=== PATIENT | female | born 1990 | race Caucasian/White ===

== ENCOUNTER 2019-04-11 15:51 | Observation (INO) | payer OTHER ==
[2019-04-11 16:41] LABS: Basophils # (A) 0.2 k/uL (0-0.2); Basophils % (A) 1 %; Eosinophils # (A) 0.2 k/uL (0-0.7); Eosinophils % (A) 1 %; HCT 35.3 % (34.0-46.0); HGB 12.2 gm/dL (11.4-16.0); Lymphocytes # (A) 2.3 k/uL (1.0-4.8); Lymphocytes % (A) 17 %; MCH 31.7 pg (25.0-35.0); MCHC 34.6 g/dL (31.0-37.0); MCV 91.6 fL (80.0-100.0); Mean Platelet Volume 7.9; Monocytes # (A) 0.7 k/uL (0-1.0); Monocytes % (A) 5 %; Neutrophils # (A) 10.2 k/uL (1.3-7.7); Neutrophils % (A) 74 %; Platelet Count 241 k/uL (150-450); RBC 3.85 m/uL (3.80-5.40); RDW 13.9 % (11.5-15.5); WBC 13.7 k/uL (3.8-10.6)
[2019-04-11 16:47] LABS: Appearance,Urine Cloudy (Clear); Bacteria,Urine Many /hpf; Bilirubin,Urine Negative (Negative); Blood,Urine Negative (Negative); Color,Urine Yellow; Glucose,Urine (UA) Negative (Negative); Ketones,Urine Negative (Negative); Leukocyte Esterase,Urine Large (Negative); Mucus,Urine Rare /hpf; Nitrite,Urine Negative (Negative); PH, Urine 6.5 (5.0-8.0); Protein,Urine Trace (Negative); RBC,Urine 3 /hpf (0-5); Specific Gravity,Urine 1.014 (1.001-1.035); Squamous Epithelial Cell,Urine 4 /hpf (0-4); Urobilinogen,Urine <2.0 mg/dL (<2.0); WBC,Urine 20 /hpf (0-5)
[2019-04-11 16:52] LABS: Amphetamine Screen,Urine Not Detected (NotDetected); Barbiturate Screen,Urine Not Detected (NotDetected); Benzodiazepines Screen,Urine Not Detected (NotDetected); Cocaine Screen,Urine Not Detected (NotDetected); Methadone Screen, Urine Not Detected (NotDetected); Opiate Screen,Urine Not Detected (NotDetected); Oxycodone Screen, Urine Not Detected (NotDetected); Phencyclidine Screen,Urine Not Detected (NotDetected); Tricyclic Antidepressant,Urine Not Detected (NotDetected); Urn Cannabinoid Scrn Detected (NotDetected)
[2019-04-11 16:53] LABS: ALT 11 U/L (4-34); AST 18 U/L (14-36); African American GFR (CKD) >90 (>60 ml/min/1.73 sqM); Blood Urea Nitrogen 10 mg/dL (7-17); LDH 350 U/L (313-618); Non-African American GFR(CKD) >90 (>60 ml/min/1.73 sqM); Uric Acid 4.1 mg/dL (3.7-7.4)
--- NOTE | 2019-04-11 19:58 | P.HPOB ---
History of Present Illness H&P Date: 04/11/19 Chief Complaint: Hypertension This patient is a 28-year-old 1 para 0 female estimated date of confinement 05/09/2019 estimated gestational age 36 weeks who presented to the office today for routine office visit with Tami. Patient's blood pressure is elevated 132/90 and therefore she was sent to labor and delivery for preeclampsia evaluation. care is per Dr. Holloway and appears to be otherwise uncomplicated up to this point. Patient's blood pressure in labor and delivery also was mildly elevated to 130s over 90s however she did have one that was 162/97. Patient denies headache, blurry vision or other signs and symptoms of preeclampsia. Review of Systems Genitourinary: Reports Menstruation: Reports amenorrhea Past Medical History Additional Past Medical History / Comment(s): anxiety, ADHD History of Any Multi-Drug Resistant Organisms: None Reported Past Surgical History: Adenoidectomy, Orthopedic Surgery Smoking Status: Former smoker Past Alcohol Use History: None Reported Past Drug Use History: Marijuana Medications and Allergies Home Medications Medication Instructions Recorded Confirmed Type Pnv No.95/Ferrous Fum/Folic AC 1 each PO DAILY 04/11/19 04/11/19 History [ Multivitamin Tablet] Allergies Allergy/AdvReac Type Severity Reaction Status Date / Time sulfamethoxazole Allergy Unknown Verified 04/11/19 16:06 [From Bactrim] trimethoprim [From Bactrim] Allergy Unknown Verified 04/11/19 16:06 Exam Intake and Output 04/11/19 04/11/19 04/11/19 06:59 14:59 22:59 Other: Weight 105.687 kg - OBG Physical Exam Abdomen: bowel sounds normal, no diffuse tenderness, no bruit present, no guard ing noted, no hepatomegaly, no splenomegaly, no mass Vulva: both: normal Vagina: no discharge Uterus: enlarged (Fundal height and office is 38 cm) Results blood work shows she is O-, rubella immune, RPR nonreactive, hepatitis B negative, HIV is nonreactive, toxoplasmosis was negative, anatomy ultrasound was normal. Group B strep was negative. Result Diagrams: 04/11/19 16:25 04/11/19 16:25 Abnormal Lab Results - Last 24 Hours (Table) 04/11/19 04/11/19 04/11/19 Range/Units 16:25 16:25 16:25 WBC 13.7 H (3.8-10.6) k/uL Neutrophils # 10.2 H (1.3-7.7) k/uL Urine Appearance Cloudy H (Clear) Urine Protein Trace H (Negative) Ur Leukocyte Esterase Large H (Negative) Urine WBC 20 H (0-5) /hpf Urine Bacteria Many H (None) /hpf Urine Mucus Rare H (None) /hpf U Random Total Protein 13 H (<12) mg/dL U Marijuana (THC) Screen (NotDetected) 04/11/19 Range/Units 16:25 WBC (3.8-10.6) k/uL Neutrophils # (1.3-7.7) k/uL Urine Appearance (Clear) Urine Protein (Negative) Ur Leukocyte Esterase (Negative) Urine WBC (0-5) /hpf Urine Bacteria (None) /hpf Urine Mucus (None) /hpf U Random Total Protein (<12) mg/dL U Marijuana (THC) Screen Detected H (NotDetected) Assessment and Plan Assessment: This is a 28-year-old 1 para 0 female 36-0/7 weeks gestation admitted for evaluation of hypertension. Patient's had some persistent hypertension here in labor and delivery however nothing that requires treatment. Patient's labs were normal however she had trace proteinuria and therefore I feel it is best to admit her for 24-hour urine and close observation of blood pressures over that time. If she were to develop severe criteria and will proceed with delivery. Otherwise patient will be stable for discharge home to follow-up with nonstress test and repeat blood pressures. Also patient was noted to have the odor of marijuana and therefore a urine screen was done which was positive. I did discuss this with her and she states that she does use it on a regular basis for pain. I explained to her that at this point we do not know the long-term effects of marijuana on development. I encouraged her to discontinue. (1) 36 weeks gestation of Current Visit: Yes Status: Acute Code(s): Z3A.36 - 36 WEEKS GESTATION OF SNOMED Code(s): 78007511 (2) Gestational hypertension Current Visit: Yes Status: Acute Code(s): O13.9 - GESTATIONAL HTN W/O SIGNIFICANT PROTEINURIA, UNSP TRIMESTER SNOMED Code(s): 703321180 (3) Substance abuse Current Visit: Yes Status: Acute Code(s): F19.10 - OTHER PSYCHOACTIVE SUBSTANCE ABUSE, UNCOMPLICATED SNOMED Code(s): 84656505
[2019-04-11 21:02] VITALS: RESP 16
--- NOTE | 2019-04-12 06:10 | P.PN ---
Progress Note - Text Progress Note Date: 04/12/19 Patient is resting without new complaints. Blood pressures earlier in the evening were 140s over 90s however they've improved 120s over 80s throughout the night. Patient continues to deny symptoms. Patient denies headache or visual changes. 24-hour urine is in progress. Plan today is to continue inpatient blood pressure observation. We will complete her 24-hour urine. Dr. Garnica will be continuing care for this patient throughout the day and I have discussed possible discharge if blood pressures remain normal and normal 24-hour urine. Obviously if there is a change in her status or worsening blood pressures it meets severe criteria she will require delivery.
[2019-04-12 16:43] LABS: Total Volume 24 Hour,Urine 1325 mls (800-1800)
[2019-04-12 16:59] LABS: Total Protein 24 Hour,Urine 172 mg/24hr (42.0-225.0)
--- NOTE | 2019-04-12 17:20 | P.DS ---
Providers Date of admission: 04/11/19 17:23 Expected date of discharge: 04/12/19 Attending physician: Ashwini Holloway Primary care physician: Stated None Hospital Course: Trina is seen and evaluated. Her 24 urine is back and is in 172. She does not have preeclampsia (all preeclamptic labs were normal). She is diagnosed with gestational hypertension. Blood pressures are all essentially in the 130/90 range while she is resting. She is resting, limit this time she did have one elevation blood pressure there is significant but she just got done having an argument with her family. She is instructed to be at home on modified bedrest through the and on Monday she'll return for blood pressure check and a nonstress test. 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 I did inform her that most likely she would be delivered between 37 and 38 weeks due to her gestational hypertension. Should she have any severe headaches, epigastric pain, visual changes or other concerns she is to reporting medially back to labor and delivery. She has no other symptoms of preeclampsia, her deep tendon reflexes are normal and she has minimal swelling in lower extremities. NST reveals a category 1 tracing . I did have a long discussion with she and her partner and all questions were answered for her prior to her discharge Patient Condition at Discharge: Stable Plan - Discharge Summary New Discharge Prescriptions: No Action Pnv No.95/Ferrous Fum/Folic AC [ Multivitamin Tablet] 1 each PO DAILY Discharge Medication List Pnv No.95/Ferrous Fum/Folic AC [ Multivitamin Tablet] 1 each PO DAILY 04/11/19 [History]
[2019-04-12 17:21] VITALS: BP 132/79; PULSE 120; TEMP 98.3
== END 2019-04-12 17:35 | disposition home or self-care (01) ==
LOC: FBPOP 15:51 → 4FBP 17:23
PROVIDERS: ADMIT Obstetrics & Gynecology; ATTEND Obstetrics & Gynecology
DX: O13.3 Gestational [pregnancy-induced] hypertension without significant proteinuria, third trimester (principal); Z3A.36 36 weeks gestation of pregnancy; O99.343 Other mental disorders complicating pregnancy, third trimester; F41.9 Anxiety disorder, unspecified; F90.9 Attention-deficit hyperactivity disorder, unspecified type; O99.323 Drug use complicating pregnancy, third trimester; F12.10 Cannabis abuse, uncomplicated; Z88.2 Allergy status to sulfonamides; Z79.899 Other long term (current) drug therapy; Z87.891 Personal history of nicotine dependence; Z90.89 Acquired absence of other organs
CPT/HCPCS: 59025; 82570; 84156 ×2; 81050; 82565; 83615; 84450; 84460; 84520; 84550; 85025; 81001; 80306; G0378 ×2

== ENCOUNTER 2019-04-14 17:38 | Outpatient (CLI) | payer OTHER ==
[2019-04-14 18:41] VITALS: BP 137/80; PULSE 114; RESP 16; TEMP 97.6
== END 2019-04-14 18:43 | disposition home or self-care (01) ==
LOC: FBPOP 17:38
PROVIDERS: ATTEND Obstetrics & Gynecology
DX: O13.3 Gestational [pregnancy-induced] hypertension without significant proteinuria, third trimester (principal); Z3A.36 36 weeks gestation of pregnancy
CPT/HCPCS: 59025; G0463; 99213

== ENCOUNTER 2019-04-19 05:45 | Inpatient (IN) | payer OTHER ==
--- NOTE | 2019-04-18 19:30 | P.HPOB ---
History of Present Illness H&P Date: 04/18/19 Chief Complaint: Gestational hypertension This is a 28 y.o. female, gravda 1, para 0, with an estimated date of confinement of 05/09/2019, estimated gestational age of 37-1/7 weeks, who presents for induction of labor due to gestational hypertension. She presented to L&D on 04/11/2019 with elevated BPs. 24 hour urine was ok, but she did have several elevated BPs. Since she is now 37 weeks, we will proceed with induction of labor due to gestational hypertension. She currently denies headaches or blurred vision. labs: Hepatitis B surface antigen-neg RPR-NR Rubella-immune Blood type-O neg Antibody screen-neg Hemoglobin-13.6 Toxoplasma-neg Random glucose-83 1 hr. 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 Unemployed. Review of Systems Constitutional: Denies chills, Denies fever Eyes: denies blurred vision, denies pain Ears, nose, mouth and throat: Denies headache, Denies sore throat Cardiovascular: Denies chest pain, Denies shortness of breath Gastrointestinal: Reports abdominal pain (irreg. ctxs) Genitourinary: Reports pelvic pain, Reports Musculoskeletal: Reports low back pain Integumentary: Denies pruritus, Denies rash Neurological: Denies numbness, Denies weakness Psychiatric: Reports anxiety, Reports depression Past Medical History Additional Past Medical History / Comment(s): anxiety, ADHD History of Any Multi-Drug Resistant Organisms: None Reported Past Surgical History: Adenoidectomy, Orthopedic Surgery Additional Past Surgical History / Comment(s): Right Arm surgery Past Psychological History: ADD/ADHD, Anxiety, Depression Smoking Status: Former smoker Past Alcohol Use History: None Reported Past Drug Use History: Marijuana - Past Family History Father Family Medical History: No Reported History Mother Family Medical History: Hypertension Medications and Allergies Home Medications Medication Instructions Recorded Confirmed Type Pnv No.95/Ferrous Fum/Folic AC 1 each PO DAILY 04/11/19 04/14/19 History [ Multivitamin Tablet] Allergies Allergy/AdvReac Type Severity Reaction Status Date / Time sulfamethoxazole Allergy Unknown Verified 04/14/19 17:43 [From Bactrim] trimethoprim [From Bactrim] Allergy Unknown Verified 04/14/19 17:43 Exam Osteopathic Statement: *. No significant issues noted on an osteopathic structural exam other than those noted in the History and Physical/Consult. HEENT: within normal limits Heart: regular rate and rhythm Lungs: clear to ausculation bilaterally Abdomen: Cervix: 1.5 cm/60%/-2 heart tones: Category 1 Contractions: irreg. Extremities: neg. Homans. Assessment and Plan (1) 37 weeks gestation of Status: Acute Code(s): Z3A.37 - 37 WEEKS GESTATION OF SNOMED Code(s): 55318089 (2) Gestational hypertension Status: Acute Code(s): O13.9 - GESTATIONAL HTN W/O SIGNIFICANT PROTEINURIA, UNSP TRIMESTER SNOMED Code(s): 545991499 Plan: Proceed with oxytocin induction of labor. Epidural anesthesia if desired. Expectant management.
[2019-04-19] MEDS ORDERED: TERBUTALINE 1 MG/ML VIAL SQ PRN (06:00)
[2019-04-19] MEDS ORDERED: METHYLERGONOVINE 0.2 MG/ML 1 ML AMP IM PRN (06:00)
[2019-04-19] MEDS ORDERED: OXYTOCIN 10 UNIT/ML 1 ML VIAL IM PRN (06:00)
[2019-04-19] MEDS ORDERED: LIDOCAINE 0.5% (PF) 5 MG/ML (50 ML SDV) SQ PRN (06:00)
[2019-04-19] MEDS ORDERED: CARBOPROST TROMETHAMINE 250 MCG/ML 1 ML AMP IM PRN (06:00)
[2019-04-19] MEDS ORDERED: OXYTOCIN 30 UNITS/500 ML NS 30 UNIT in SALINE 1 500ML.BAG IV SCH (06:00)
[2019-04-19] MEDS ORDERED: LIDOCAINE 1% 20 ML VIAL (10MG/ML) FOR IV START INTRADERMA PRN (06:00)
[2019-04-19] MEDS: LACTATED RINGERS 1,000 ML IV SCH ×5 (06:11→19:38)
[2019-04-19 06:22] LABS: Basophils # (A) 0.2 k/uL (0-0.2); Basophils % (A) 1 %; Eosinophils # (A) 0.2 k/uL (0-0.7); Eosinophils % (A) 2 %; HCT 35.5 % (34.0-46.0); HGB 12.2 gm/dL (11.4-16.0); Lymphocytes # (A) 2.9 k/uL (1.0-4.8); Lymphocytes % (A) 21 %; MCH 31.6 pg (25.0-35.0); MCHC 34.3 g/dL (31.0-37.0); MCV 92.1 fL (80.0-100.0); Monocytes # (A) 0.6 k/uL (0-1.0); Monocytes % (A) 4 %; Neutrophils # (A) 9.5 k/uL (1.3-7.7); Neutrophils % (A) 69 %; Platelet Count 248 k/uL (150-450); RBC 3.86 m/uL (3.80-5.40); RDW 14.3 % (11.5-15.5); WBC 13.7 k/uL (3.8-10.6)
[2019-04-19] MEDS ORDERED: BUTORPHANOL 1 MG/ML 1 ML VIAL IV PRN (10:54)
[2019-04-19] MEDS ORDERED: SODIUM CHLORIDE 0.9% 100 ML BAG ONE (13:26)
[2019-04-19] MEDS ORDERED: fentaNYL (PF) 50 MCG/ML 5 ML AMP ONE (13:26)
[2019-04-19] MEDS ORDERED: ROPIVACAINE 5MG/ML 20ML VIAL ONE (13:26)
[2019-04-19] MEDS: PRENATAL VIT-IRON-FOLIC ACID 1 EACH CAP PO SCH (19:38)
[2019-04-19] MEDS ORDERED: HYDROCORTISONE 2.5% RECTAL CREAM 30 GM TUBE RECTAL PRN (20:01)
[2019-04-19] MEDS ORDERED: OXYTOCIN 20 UNITS/1000 ML NS 1,000 ML IV SCH (20:01)
[2019-04-19] MEDS ORDERED: diphenhydrAMINE 25 MG CAP PO PRN (20:01)
[2019-04-19] MEDS ORDERED: ZOLPIDEM 5 MG TAB PO PRN (20:01)
[2019-04-19] MEDS ORDERED: WITCH HAZEL 1 EACH MED..PAD TOPICAL PRN (20:01)
[2019-04-19] MEDS ORDERED: LANOLIN CREAM 5 GM TUBE TOPICAL PRN (20:01)
[2019-04-19] MEDS ORDERED: diphenhydrAMINE 50 MG/ML 1 ML VIAL IVP PRN ×2 (20:01)
[2019-04-19] MEDS ORDERED: BENZOCAINE/MENTHOL SPRAY 1 GM/SPRAY AEROSOL TOPICAL PRN (20:01)
[2019-04-19] MEDS ORDERED: SIMETHICONE 80 MG CHEWABLE PO PRN (20:01)
[2019-04-19] MEDS ORDERED: diphenhydrAMINE 50 MG CAP PO PRN (20:01)
[2019-04-19] MEDS ORDERED: ACETAMINOPHEN TAB 325 MG TAB PO PRN (20:01)
--- NOTE | 2019-04-19 20:03 | P.PROBDLV ---
Vaginal Delivery Note - . Vaginal Delivery Note: The patient progressed to complete dilation after oxytocin induction of labor and artificial rupture of membranes with clear fluid noted. She did have occasional elevated blood pressures but nothing severe throughout her labor. She did receive epidural anesthesia. Once reaching complete dilation, she began pushing. 's head came to a crown. With one further push, the infant's head delivered across the perineum followed by the anterior shoulder. Nose and mouth were bulb suctioned at the perineum and then a tight nuchal cord times one was doubly clamped and cut and reduced around the 's head. With one further push, the remainder the easily delivered and was placed on mother's abdomen. was taken to warmer evaluated by nursing staff. A viable male infant is noted with scores of 8 at 1 minute and 8 at 5 minutes and weight of 6 lbs. 7 oz. Placenta delivered shortly thereafter, intact, with a three-vessel cord. Uterus contracted fairly well after oxytocin was given and uterine massage was carried out. A gloved hand was placed within the endometrial cavity and a few blood clots were removed. Uterus did firm up well after this. Inspection of the perineum revealed a first-degree perineal laceration and a right periurethral laceration. These areas were anesthetized with 1% lidocaine and then sutured with 3-0 and 2-0 Vicryl suture respectively in a running locked fashion. Estimated blood loss is approximately 250 mL's. Both mother and infant are in stable condition.
[2019-04-19] MEDS: IBUPROFEN 600 MG TAB PO PRN (20:35)
[2019-04-19] MEDS: SENNOSIDES-DOCUSATE SODIUM 1 EACH TAB PO SCH (20:36)
[2019-04-20] MEDS: IBUPROFEN 600 MG TAB PO PRN ×3 (06:43→23:09)
[2019-04-20 07:42] LABS: Basophils # (A) 0.1 k/uL (0-0.2); Basophils % (A) 1 %; Eosinophils # (A) 0.1 k/uL (0-0.7); Eosinophils % (A) 1 %; HCT 33.2 % (34.0-46.0); HGB 11.1 gm/dL (11.4-16.0); Lymphocytes # (A) 2.8 k/uL (1.0-4.8); Lymphocytes % (A) 21 %; MCH 31.1 pg (25.0-35.0); MCHC 33.5 g/dL (31.0-37.0); MCV 92.8 fL (80.0-100.0); Mean Platelet Volume 8.6; Monocytes # (A) 0.8 k/uL (0-1.0); Monocytes % (A) 6 %; Neutrophils % (A) 69 %; Platelet Count 206 k/uL (150-450); RBC 3.58 m/uL (3.80-5.40); RDW 14.2 % (11.5-15.5)
[2019-04-20] MEDS: SENNOSIDES-DOCUSATE SODIUM 1 EACH TAB PO SCH ×2 (08:44→19:50)
[2019-04-20] MEDS: PRENATAL VIT-IRON-FOLIC ACID 1 EACH CAP PO SCH (08:47)
[2019-04-20] MEDS ORDERED: Rhogam IMMUNE GLOBULIN 1,500 UNIT/1 ML IM ONE (12:58)
--- NOTE | 2019-04-20 13:09 | P.PNOBGVD ---
Subjective - Subjective Principal diagnosis: Status post vaginal delivery day #1 Interval history: Patient is doing okay. She is having some difficulty with breast-feeding. Lochia is slowly decreasing. Pain is well-controlled. Patient reports: Reports appetite normal, Reports voiding normally, Reports pain well controlled, Reports ambulating normally : doing well Objective - Latest Vital Signs Latest vital signs: Vital Signs Temp Pulse Resp BP 04/20/19 08:00 98.3 F 98 14 130/92 04/20/19 04:00 98.3 F 89 16 121/64 04/20/19 00:00 98.3 F 90 16 132/87 04/19/19 21:40 99.8 F H 110 H 16 133/77 04/19/19 21:10 105 H 16 132/83 04/19/19 20:40 121 H 16 128/80 04/19/19 20:25 108 H 16 133/91 04/19/19 20:10 113 H 16 133/75 04/19/19 19:55 99.1 F 118 H 16 145/83 04/19/19 19:40 115 H 16 154/85 Intake and Output 04/19/19 04/20/19 04/20/19 22:59 06:59 14:59 Intake Total 600 Balance 600 Intake: Other 600 Other: # Voids 1 2 - Exam Extremities: Present: normal. Absent: tenderness Abdomen: Present: normal appearance, soft. Absent: distention, tenderness Uterus: Present: normal, firm. Absent: tenderness - Labs Labs: Abnormal Lab Results - Last 24 Hours (Table) 04/20/19 Range/Units 06:26 WBC 13.0 H (3.8-10.6) k/uL RBC 3.58 L (3.80-5.40) m/uL Hgb 11.1 L (11.4-16.0) gm/dL Hct 33.2 L (34.0-46.0) % Neutrophils # 9.0 H (1.3-7.7) k/uL Assessment and Plan Assessment: Status post vaginal delivery day #1 Gestational hypertension (1) 37 weeks gestation of Current Visit: No Status: Acute Code(s): Z3A.37 - 37 WEEKS GESTATION OF SNOMED Code(s): 00643511 (2) Gestational hypertension Current Visit: No Status: Acute Code(s): O13.9 - GESTATIONAL HTN W/O SIGNIFICANT PROTEINURIA, UNSP TRIMESTER SNOMED Code(s): 601509915 Plan: Continue with care and observation of blood pressures. She has had an occasional isolated elevated blood pressure since delivery. We'll work on breast-feeding today. Anticipate discharge home tomorrow. Will consult social work job titles due to her history of marijuana use during
[2019-04-20 23:41] VITALS: RESP 16
[2019-04-21] MEDS: IBUPROFEN 600 MG TAB PO PRN (08:23)
[2019-04-21] MEDS: SENNOSIDES-DOCUSATE SODIUM 1 EACH TAB PO SCH (08:24)
[2019-04-21 08:32] VITALS: BP 135/85; PULSE 91; TEMP 97.9
--- NOTE | 2019-04-21 10:41 | P.DS ---
Providers Date of admission: 04/19/19 05:45 Expected date of discharge: 04/21/19 Attending physician: Ashwini Holloway Primary care physician: Stated None - Discharge Diagnosis(es) (1) 37 weeks gestation of Current Visit: No Status: Acute (2) Gestational hypertension Current Visit: No Status: Acute Hospital Course: This is a 28-year-old female 1 para 0 at 37 and one sevenths weeks who presented for induction of labor due to gestational hypertension. She delivered vaginally a viable male infant on 04/19/2019 with scores of 8 at 1 minute and 8 at 5 minutes and infant weight of 6 lbs. 7 oz. Her course has been essentially uncomplicated. She has been working on breast-feeding. Lochia is decreasing. Pain is been fairly well-controlled. Her blood pressures have been stable since delivery. Vital signs are stable. Abdomen is soft with fundus firm and nontender. Extremities show negative Homans. Impression is status post vaginal delivery day #2. Plan is to discharge home today. Routine instructions are given. She is advised to follow up in the office in 1-2 weeks for a blood pressure check and in 6 weeks for a check. She is advised to call the office if she has any further questions or concerns prior to her appointment time. She will be given a prescription for ibuprofen and a breast pump. Procedures: Oxytocin induction of labor Spontaneous vaginal delivery of a viable male infant on 04/19/2019 Patient Condition at Discharge: Stable Plan - Discharge Summary New Discharge Prescriptions: No Action Pnv No.95/Ferrous Fum/Folic AC [ Multivitamin Tablet] 1 each PO DAILY Discharge Medication List Pnv No.95/Ferrous Fum/Folic AC [ Multivitamin Tablet] 1 each PO DAILY 04/11/19 [History]
== END 2019-04-21 12:45 | disposition home or self-care (01) | DRG 807 ==
LOC: 4FBP 05:45
PROVIDERS: ADMIT Obstetrics & Gynecology; ATTEND Obstetrics & Gynecology
PROC: 10E0XZZ Delivery of Products of Conception, External Approach (ICD-10-PCS; principal; 2019-04-19)
PROC: 10907ZC Drainage of Amniotic Fluid, Therapeutic from Products of Conception, Via Natural or Artificial Opening (ICD-10-PCS; principal; 2019-04-19)
PROC: 3E0R3BZ Introduction of Anesthetic Agent into Spinal Canal, Percutaneous Approach (ICD-10-PCS; principal; 2019-04-19)
PROC: 00HU33Z Insertion of Infusion Device into Spinal Canal, Percutaneous Approach (ICD-10-PCS; principal; 2019-04-19)
PROC: 0HQ9XZZ Repair Perineum Skin, External Approach (ICD-10-PCS; principal; 2019-04-19)
PROC: 3E033VJ Introduction of Other Hormone into Peripheral Vein, Percutaneous Approach (ICD-10-PCS; principal; 2019-04-19)
DX: O13.4 Gestational [pregnancy-induced] hypertension without significant proteinuria, complicating childbirth (principal); Z37.0 Single live birth; O99.324 Drug use complicating childbirth; O69.1XX0 Labor and delivery complicated by cord around neck, with compression, not applicable or unspecified; O70.0 First degree perineal laceration during delivery; F12.90 Cannabis use, unspecified, uncomplicated; Z3A.37 37 weeks gestation of pregnancy; Z88.1 Allergy status to other antibiotic agents; Z88.2 Allergy status to sulfonamides; Z87.891 Personal history of nicotine dependence; Z86.59 Personal history of other mental and behavioral disorders; Z82.49 Family history of ischemic heart disease and other diseases of the circulatory system
CPT/HCPCS: 85025; 85461; 86850; 86900; 86901; 88307

== ENCOUNTER → 2020-08-28 | Outpatient (CLI) | payer OTHER ==
--- NOTE | 2020-08-28 16:34 | US ---
EXAMINATION TYPE: Transabdominal DATE OF EXAM: 08/28/2020 3:06 PM COMPARISON: NONE CLINICAL HISTORY: Z36 confirm dates. Confirm dates EXAM PERFORMED: Transabdominal (TA) EXAM MEASUREMENTS: GESTATIONAL AGE / DATING Physician Established: Not yet established Dates by LMP (11 weeks/4 days) EDC: 03/15/2021 Dates by First Scan: No previous this is first scan Dates by Current Scan for ( 9 weeks/6 days) EDC: 03/27/2021 MATERNAL ANATOMY Uterus: 10.1 x 7.2 x 7.9 cm Right Ovary: 3.8 x 3.1 x 3.2 cm Left Ovary: 2.8 x 1.4 x 2.5 cm Post CDS / Adnexa: wnl Presence of free fluid: no Presence of corpus luteal cyst: yes right Presence of subchorionic bleed: no GESTATION / SURVEY CRL: 2.93 cm (9 weeks/6 days) Yolk Sac (normal less than 6mm): 3 mm Heart Rate: 174 bpm Rhythm: Normal IUP: Viable IUP IMPRESSION: Single intrauterine with an average ultrasound gestational age of 9 weeks and 6 days. heart rate is 174 bpm. [place]-rump length is 2.9 cm, and yolk sac is 0.3 cm.
== END | disposition home or self-care (01) ==
LOC: RADUSWWP 14:37
PROVIDERS: ATTEND Obstetrics & Gynecology
DX: Z36.89 Encounter for other specified antenatal screening (principal); O36.8310 Maternal care for abnormalities of the fetal heart rate or rhythm, first trimester, not applicable or unspecified; Z3A.09 9 weeks gestation of pregnancy
CPT/HCPCS: 76801

== ENCOUNTER 2021-01-20 23:40 | Outpatient (CLI) | payer OTHER ==
[2021-01-21 00:37] VITALS: BP 124/73; PULSE 114; RESP 16; TEMP 98.6
--- NOTE | 2021-01-21 06:49 | P.MSEPDOC ---
Presenting Problems - Arrival Data Date of Arrival on Unit: 01/20/21 Time of Arrival on Unit: 23:40 Mode of Transport: Ambulatory - Complaint OB-Reason for Admission/Chief Complaint: Decreased Movement Comment: patient states she hasn't felt baby move since earlier in afternoon and baby is more active at night Medical History - Information : 2 Para: 1 Term: 1 : 0 Abortions: Spontaneous or Elective: 0 Number of Living Children: 1 - Gestational Age Gestational Age by SCARLETT (wks/days): 30 Weeks and 5 Days - History Complications: Other Comment: patient see MFM at [facility] for heart defect with baby Review of Systems - Review of Systems Constitutional: No problems Breast: No problems ENT: No problems Cardiovascular: No problems Respiratory: No problems Gastrointestinal: No problems Genitourinary: No problems Musculoskeletal: No problems Neurological: No problems Skin: No problems Vital Signs - Temperature Temperature: 98.6 F Temperature Source: Oral - Pulse Pulse Oximetery Pulse Rate: 114 Pulse Assessment Method: Pulse Oximetry - Respirations Respiratory Rate: 16 Oxygen Delivery Method: Room Air O2 Sat by Pulse Oximetry: 97 - Blood Pressure Right Arm Blood Pressure: 124/73 Blood Pressure Mean: 90 Blood Pressure Source: Automatic Cuff Medical Screen Scoring - Assessment - Baby A Baseline FHR: 135 Heart Rate - NICHD Category: Category II (Indeterminate) NST: Reactive Physician Notification - Physician Notified Physician Notified Date: 01/21/21 Physician Notified Time: 00:18 Physician: Gigi Best New Order Received: Yes (d/c home) Maternal Triage Index - Maternal Triage Index Presenting for scheduled procedure w/no complaint: No - Stat/Priority 1 Stat Priority 1: No - Urgent/Priority 2 Urgent Priority 2: Yes Provider Notified: Gigi Best Provider Notified Time: 00:18 Criteria Met for Priority 2: decreased movement. patient states she hasn't felt baby movement since eariler today. reactive NST. D/c home - Prompt/Priority 3 Prompt Priority 3: No - Non-Urgent/Priority 4 Non-Urgent Priority 4: No Disposition - Disposition OB Disposition: Discharge to home Discharge Date: 01/21/21 Discharge Time: 00:25 I agree with the RN Medical Screening Exam: Yes Case reviewed; plan agreed upon as documented in EMR&OBIX.: Yes Diagnosis: DECREASED MOVEMENTS, UNSP TRIMESTER, UNSP (reactive NST and no evidence of maternal compromise.)
== END 2021-01-21 00:25 | disposition home or self-care (01) ==
LOC: FBPOP 23:40
PROVIDERS: ATTEND Obstetrics & Gynecology
DX: O36.8130 Decreased fetal movements, third trimester, not applicable or unspecified (principal); Z3A.30 30 weeks gestation of pregnancy; Z88.2 Allergy status to sulfonamides; Z88.1 Allergy status to other antibiotic agents; Z87.891 Personal history of nicotine dependence
CPT/HCPCS: 59025; G0463; 99213

== ENCOUNTER 2021-06-05 11:35 | Emergency (ER) | payer OTHER ==
[2021-06-05] MEDS ORDERED: SODIUM CHLORIDE 0.9% 1,000 ML IV STA (11:51)
[2021-06-05] MEDS ORDERED: ONDANSETRON 4 MG/2 ML VIAL IVP STA (12:33)
--- NOTE | 2021-06-05 12:38 | ED ---
Abdominal Pain HPI - General Chief Complaint: Abdominal Pain Stated Complaint: Abd pain Time Seen by Provider: 06/05/21 11:40 Source: patient Mode of arrival: ambulatory Limitations: no limitations - History of Present Illness Initial Comments: Patient is a 30-year-old female who presents to the emergency department with a chief complaint of abdominal pain, nausea, and vomiting 4 days. Patients reports intermittent right upper quadrant abdominal pain that initially started in the right upper flank. Patient reports that over the course of 4 days she started to vomit more, around 5-10 times yesterday, unable to tolerate food or liquid. Patient reports that she has had less bowel movements than normal and her last two have been a light haydee color. Patient has no other concerns at this time including fever, chills, headache, shortness of breath, chest pain, and burning with urination. Patient has no previous history of kidney stones/infection, abdominal surgeries, and gallbladder issues. She is 3 months currently breast-feeding. She denies chance of . - Related Data Home Medications Medication Instructions Recorded Confirmed Aspirin 81 mg PO DAILY 01/20/21 01/20/21 Doxylamine Succinate [Unisom] 25 mg PO DAILY 01/20/21 01/20/21 Sertraline [Zoloft] 25 mg PO DAILY 01/20/21 01/20/21 Allergies Allergy/AdvReac Type Severity Reaction Status Date / Time sulfamethoxazole Allergy Unknown Verified 06/05/21 11:39 [From Bactrim] trimethoprim [From Bactrim] Allergy Unknown Verified 06/05/21 11:39 Review of Systems ROS Statement: Those systems with pertinent positive or pertinent negative responses have been documented in the HPI. ROS Other: All systems not noted in ROS Statement are negative. Past Medical History Past Medical History: No Reported History Additional Past Medical History / Comment(s): anxiety, ADHD History of Any Multi-Drug Resistant Organisms: None Reported Past Surgical History: Adenoidectomy, Orthopedic Surgery Additional Past Surgical History / Comment(s): Right Arm surgery Past Psychological History: ADD/ADHD, Anxiety, Depression Smoking Status: Never smoker Past Alcohol Use History: None Reported Past Drug Use History: None Reported - Past Family History Father Family Medical History: No Reported History Mother History Unknown: Yes Family Medical History: Hypertension General Exam Limitations: no limitations Head exam: Present: atraumatic, normocephalic, normal inspection Eye exam: Present: PERRL, scleral icterus. Absent: normal appearance Respiratory exam: Present: normal lung sounds bilaterally. Absent: respiratory distress, wheezes, rales, rhonchi, stridor Cardiovascular Exam: Present: regular rate, normal rhythm, normal heart sounds. Absent: systolic murmur, diastolic murmur, rubs, gallop, clicks GI/Abdominal exam: Present: soft, tenderness (She is very tender in the right upper quadrant. Positive Sandoval sign. No pain with palpation of the left upper quadrant, right lower quadrant, and left lower quadrant.), normal bowel sounds. Absent: distended, guarding, rebound, rigid Neurological exam: Present: alert, oriented X3, CN II-XII intact Psychiatric exam: Present: normal affect, normal mood Skin exam: Present: warm, dry, intact, normal color (No yellowing of the skin). Absent: rash Course Vital Signs 06/05/21 06/05/21 06/05/21 11:37 14:34 16:00 Temperature 97.8 F 98.8 F Pulse Rate 94 88 73 Respiratory 20 20 18 Rate Blood Pressure 146/95 138/89 133/92 O2 Sat by Pulse 99 99 100 Oximetry Medical Decision Making - Medical Decision Making This is a 30-year-old female who presents with abdominal pain, nausea, vomiting 4 days. Thorough history and examination were performed. Patient is afebrile. There is mild scleral icterus. She is very tender with palpation in the right upper quadrant. Positive Sandoval sign. Patient has no white count at 7.3. Total bilirubin, AST, ALT, and alk phos are elevated at 4.7, 226, 598, and 351 respectively. Urinalysis reveals bilirubin and calcium oxalate crystals. Abdominal ultrasound was obtained and reveals multiple gallstones with mildly thickened gallbladder. There is mild dilation of the common bile duct and intrahepatic duct, findings raise question of acute cholecystitis and choledocholithiasis. Risks and benefits of Zofran consumption during breast-feeding were discussed. Patient was given a fluid bolus and Zofran. On reevaluation patient is no longer nauseous. Case discussed with Dr. Mena. At this time Dr. Mena recommends transfer as we do not have GI coverage available for ERCP. Case discussed with GI specialist Dr. Eason and emergency physician Dr. Schultz at [facility]. Patient will be transferred to [facility] emergency department for evaluation and admission for further evaluation and management. They did not request antibiotic treatment at this time due to lack of fever and white count. Patient agreeable to transfer. Before transfer patient experienced increased right upper quadrant pain and requests pain medication. Risks and benefits of morphine consumption during breast-feeding were discussed. Patient given morphine. Dr. Delgadillo is my attending. - Lab Data Result diagrams: 06/05/21 12:11 06/05/21 12:11 Lab Results 06/05/21 06/05/21 06/05/21 Range/Units 12:11 12:11 13:24 WBC 7.3 (3.8-10.6) k/uL RBC 4.93 (3.80-5.40) m/uL Hgb 13.7 (11.4-16.0) gm/dL Hct 42.1 (34.0-46.0) % MCV 85.5 (80.0-100.0) fL MCH 27.8 (25.0-35.0) pg MCHC 32.6 (31.0-37.0) g/dL RDW 16.4 H (11.5-15.5) % Plt Count 254 (150-450) k/uL MPV 9.1 Neutrophils % 52 % Lymphocytes % 35 % Monocytes % 8 % Eosinophils % 3 % Basophils % 1 % Neutrophils # 3.8 (1.3-7.7) k/uL Lymphocytes # 2.6 (1.0-4.8) k/uL Monocytes # 0.5 (0-1.0) k/uL Eosinophils # 0.2 (0-0.7) k/uL Basophils # 0.1 (0-0.2) k/uL Anisocytosis Slight Sodium 140 (137-145) mmol/L Potassium 4.5 (3.5-5.1) mmol/L Chloride 105 (98-107) mmol/L Carbon Dioxide 22 (22-30) mmol/L Anion Gap 13 mmol/L BUN 7 (7-17) mg/dL Creatinine 0.82 (0.52-1.04) mg/dL Est GFR (CKD-EPI)AfAm >90 (>60 ml/min/1.73 sqM) Est GFR (CKD-EPI)NonAf >90 (>60 ml/min/1.73 sqM) Glucose 102 H (74-99) mg/dL Calcium 9.8 (8.4-10.2) mg/dL Total Bilirubin 4.7 H (0.2-1.3) mg/dL AST 226 H (14-36) U/L ALT 598 H (4-34) U/L Alkaline Phosphatase 351 H (38-126) U/L Total Protein 8.7 H (6.3-8.2) g/dL Albumin 4.9 (3.5-5.0) g/dL Lipase 134 (23-300) U/L Urine Color Dark Brown Urine Appearance Cloudy H (Clear) Urine pH 6.5 (5.0-8.0) Ur Specific [place] 1.024 (1.001-1.035) Urine Protein 1+ H (Negative) Urine Glucose (UA) Negative (Negative) Urine Ketones 1+ H (Negative) Urine Blood Negative (Negative) Urine Nitrite Negative (Negative) Urine Bilirubin 3+ H (Negative) Urine Urobilinogen 4.0 (<2.0) mg/dL Ur Leukocyte Esterase Moderate H (Negative) Urine RBC 3 (0-5) /hpf Urine WBC 18 H (0-5) /hpf Ur Squamous Epith Cells 4 (0-4) /hpf Calcium Oxalate Crystal Occasional H (None) /hpf Urine Mucus Many H (None) /hpf Urine HCG, Qual (Not Detectd) 06/05/21 Range/Units 13:24 WBC (3.8-10.6) k/uL RBC (3.80-5.40) m/uL Hgb (11.4-16.0) gm/dL Hct (34.0-46.0) % MCV (80.0-100.0) fL MCH (25.0-35.0) pg MCHC (31.0-37.0) g/dL RDW (11.5-15.5) % Plt Count (150-450) k/uL MPV Neutrophils % % Lymphocytes % % Monocytes % % Eosinophils % % Basophils % % Neutrophils # (1.3-7.7) k/uL Lymphocytes # (1.0-4.8) k/uL Monocytes # (0-1.0) k/uL Eosinophils # (0-0.7) k/uL Basophils # (0-0.2) k/uL Anisocytosis Sodium (137-145) mmol/L Potassium (3.5-5.1) mmol/L Chloride (98-107) mmol/L Carbon Dioxide (22-30) mmol/L Anion Gap mmol/L BUN (7-17) mg/dL Creatinine (0.52-1.04) mg/dL Est GFR (CKD-EPI)AfAm (>60 ml/min/1.73 sqM) Est GFR (CKD-EPI)NonAf (>60 ml/min/1.73 sqM) Glucose (74-99) mg/dL Calcium (8.4-10.2) mg/dL Total Bilirubin (0.2-1.3) mg/dL AST (14-36) U/L ALT (4-34) U/L Alkaline Phosphatase (38-126) U/L Total Protein (6.3-8.2) g/dL Albumin (3.5-5.0) g/dL Lipase (23-300) U/L Urine Color Urine Appearance (Clear) Urine pH (5.0-8.0) Ur Specific [place] (1.001-1.035) Urine Protein (Negative) Urine Glucose (UA) (Negative) Urine Ketones (Negative) Urine Blood (Negative) Urine Nitrite (Negative) Urine Bilirubin (Negative) Urine Urobilinogen (<2.0) mg/dL Ur Leukocyte Esterase (Negative) Urine RBC (0-5) /hpf Urine WBC (0-5) /hpf Ur Squamous Epith Cells (0-4) /hpf Calcium Oxalate Crystal (None) /hpf Urine Mucus (None) /hpf Urine HCG, Qual Not Detected (Not Detectd) Disposition Clinical Impression: Right upper quadrant pain, Nausea and vomiting Disposition: OTHER INSTITUTION NOT DEFINED Condition: Fair Referrals: Geo Granados MD [Primary Care Provider] - 1-2 days Time of Disposition: 16:05 - Out of Hospital Transfer - Req. Specs Out of Hospital Transfer - Requested Specifics: Other Emergency Center ([facility]
[2021-06-05 13:13] LABS: Anisocytosis Slight; Basophils # (A) 0.1 k/uL (0-0.2); Basophils % (A) 1 %; Eosinophils # (A) 0.2 k/uL (0-0.7); Eosinophils % (A) 3 %; HCT 42.1 % (34.0-46.0); HGB 13.7 gm/dL (11.4-16.0); Lymphocytes # (A) 2.6 k/uL (1.0-4.8); Lymphocytes % (A) 35 %; MCH 27.8 pg (25.0-35.0); MCHC 32.6 g/dL (31.0-37.0); MCV 85.5 fL (80.0-100.0); Mean Platelet Volume 9.1; Monocytes # (A) 0.5 k/uL (0-1.0); Monocytes % (A) 8 %; Neutrophils # (A) 3.8 k/uL (1.3-7.7); Neutrophils % (A) 52 %; Platelet Count 254 k/uL (150-450); RBC 4.93 m/uL (3.80-5.40); RDW 16.4 % (11.5-15.5); WBC 7.3 k/uL (3.8-10.6)
[2021-06-05 13:24] LABS: ALT 598 U/L (4-34); AST 226 U/L (14-36); African American GFR (CKD) >90 (>60 ml/min/1.73 sqM); Albumin 4.9 g/dL (3.5-5.0); Alkaline Phosphatase 351 U/L (38-126); Anion Gap 13 mmol/L; Blood Urea Nitrogen 7 mg/dL (7-17); Calcium 9.8 mg/dL (8.4-10.2); Carbon Dioxide 22 mmol/L (22-30); Chloride 105 mmol/L (98-107); Glucose 102 mg/dL (74-99); Lipase 134 U/L (23-300); Non-African American GFR(CKD) >90 (>60 ml/min/1.73 sqM); Potassium 4.5 mmol/L (3.5-5.1); Sodium 140 mmol/L (137-145); Total Bilirubin 4.7 mg/dL (0.2-1.3); Total Protein 8.7 g/dL (6.3-8.2)
--- NOTE | 2021-06-05 13:35 | US ---
EXAMINATION TYPE: US abdomen limited DATE OF EXAM: 06/05/2021 COMPARISON: NONE CLINICAL HISTORY: RUQ pain. EXAM MEASUREMENTS: Liver Length: 15.0 cm Gallbladder Wall: 0.4 cm CBD: 1.0 cm Right Kidney: 11.6 x 4.1 x 5.7cm Pancreas: Obscured by bowel gas Liver: wnl, prominent intrahepatic ducts Gallbladder: cholelithiasis, mildly thickened wall Evidence for sonographic Sandoval's sign:neg CBD: dilated Right Kidney: hyperechoic calyceal system Impression: 1. Multiple gallstones with mildly thickened gallbladder. Mild dilatation of the common bile duct and intrahepatic ducts. Findings raise the question of acute cholecystitis with choledocholithiasis. 2. Medullary sponge kidney of the right kidney without evidence of hydronephrosis or calculus.
[2021-06-05 13:40] LABS: Appearance,Urine Cloudy (Clear); Bilirubin,Urine 3+ (Negative); Blood,Urine Negative (Negative); Calcium Oxalate Crystals,Urine Occasional /hpf; Color,Urine Dark Brown; Glucose,Urine (UA) Negative (Negative); Ketones,Urine 1+ (Negative); Leukocyte Esterase,Urine Moderate (Negative); Mucus,Urine Many /hpf; Nitrite,Urine Negative (Negative); PH, Urine 6.5 (5.0-8.0); Protein,Urine 1+ (Negative); RBC,Urine 3 /hpf (0-5); Specific Gravity,Urine 1.024 (1.001-1.035); Squamous Epithelial Cell,Urine 4 /hpf (0-4); WBC,Urine 18 /hpf (0-5)
[2021-06-05 16:07] VITALS: BP 133/92; PULSE 73; RESP 18; TEMP 98.8
[2021-06-05] MEDS ORDERED: MORPHINE SULFATE 4 MG/ML SYRINGE IVP STA (16:07)
== END 2021-06-05 16:30 | disposition other institution (70) ==
LOC: EC 11:35
DX: R10.11 Right upper quadrant pain (principal); R11.2 Nausea with vomiting, unspecified
CPT/HCPCS: 36415; 80053; 83690; 85025; 81001; 81025; 87086; 76705; 99285; 96374; 96375; 96361; J2270; J2405

== ENCOUNTER → 2021-09-16 | Outpatient (CLI) | payer OTHER ==
[2021-09-16 22:32] LABS: HCT 42.6 % (37.2-46.3); HGB 13.6 g/dL (12.0-15.0); MCHC 31.9 g/dL (32.0-37.0); MCV 87.8 fL (80.0-97.0); Mean Platelet Volume 10.9 fL (9.5-12.2); NRBC Per 100 WBC 0 /100 WBCS (0.0-0.0); Platelet Count 268 X 10*3/uL (140-440); RBC 4.85 X 10*6/uL (4.10-5.20); RDW 14.2 % (11.5-14.5); WBC 9.18 X 10*3/uL (4.50-10.00)
[2021-09-16 23:15] LABS: ALT 20 U/L (8-44); AST 34 U/L (13-35); African American GFR (CKD) 119.2 (60.0-200.0); Albumin 4.7 g/dL (3.8-4.9); Albumin/Globulin Ratio 1.73 (1.60-3.17); Alkaline Phosphatase 143 U/L (41-126); BUN/Creat Ratio 13.48 Ratio (12.00-20.00); Blood Urea Nitrogen 10.5 mg/dL (9.0-27.0); Calcium 9.4 mg/dL (8.7-10.3); Carbon Dioxide 22.1 mmol/L (20.0-27.5); Chloride 104 mmol/L (96-109); Chol/HDL Ratio 3.01 Ratio; Globulin 2.7 g/dL (1.6-3.3); Glucose 67 mg/dL (70-110); LDL Cholesterol,Calculated 84.3 mg/dL (0.0-131.0); Non-African American GFR(CKD) 102.9 (60.0-200.0); Potassium 4.3 mmol/L (3.5-5.5); Sodium 140 mmol/L (135-145); Total Bilirubin <0.15 mg/dL (0.30-1.20); Total Protein 7.3 g/dL (6.2-8.2); VLDL Calculation 17.22 mg/dL (5.00-40.00)
== END | disposition home or self-care (01) ==
LOC: LABWHC1 14:24
PROVIDERS: ATTEND Nurse Practitioner Family
DX: Z00.00 Encounter for general adult medical examination without abnormal findings (principal); Z13.0 Encounter for screening for diseases of the blood and blood-forming organs and certain disorders involving the immune mechanism; Z13.1 Encounter for screening for diabetes mellitus; Z13.220 Encounter for screening for lipoid disorders; Z13.29 Encounter for screening for other suspected endocrine disorder
CPT/HCPCS: 36415; 80053; 80061; 84443; 85027

== ENCOUNTER → 2022-06-20 | Outpatient (CLI) | payer OTHER ==
[2022-06-20 22:25] LABS: HCT 45.9 % (37.2-46.3); MCH 29.5 pg (27.0-32.0); MCHC 32.7 g/dL (32.0-37.0); MCV 90.4 fL (80.0-97.0); Mean Platelet Volume 11.6 fL (9.5-12.2); NRBC Per 100 WBC 0 /100 WBCS (0.0-0.0); Platelet Count 319 X 10*3/uL (140-440); RBC 5.08 X 10*6/uL (4.10-5.20); RDW 14.5 % (11.5-14.5); WBC 11.34 X 10*3/uL (4.50-10.00)
[2022-06-21 00:20] LABS: Basophils # (M) 0.11 X 10*3/uL (0.00-0.10); Eosinophils # (M) 0.23 X 10*3/uL (0.04-0.35); Lymphocytes # (M) 5.22 X 10*3/uL (0.90-5.00); Monocytes # (M) 0.45 X 10*3/uL (0.20-1.00); Neutrophils # (M) 5.33 X 10*3/uL (2.00-8.90); Neutrophils % (M) 47 %
== END | disposition home or self-care (01) ==
LOC: LABPAT 16:07
PROVIDERS: ATTEND Obstetrics & Gynecology
DX: Z01.812 Encounter for preprocedural laboratory examination (principal)
CPT/HCPCS: 85025

== ENCOUNTER 2022-06-24 05:59 | Day surgery (SDC) | payer OTHER ==
--- NOTE | 2022-06-23 19:44 | P.HPOB ---
History of Present Illness H&P Date: 06/23/22 Chief Complaint: Family planning This is a 31 y.o. female, 2, para 2, who presents for laparoscopic bilateral tubal ligation via fulgaration. She is currently using rhythm method and wishes permanent sterilization. OB Hx: . History of 2 vaginal deliveries. 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 Unemployed. Review of Systems Constitutional: Denies chills, Denies fever Eyes: denies blurred vision, denies pain Ears, nose, mouth and throat: Denies headache, Denies sore throat Cardiovascular: Denies chest pain, Denies shortness of breath Respiratory: Denies cough Gastrointestinal: Denies abdominal pain, Denies diarrhea, Denies nausea, Denies vomiting Genitourinary: Denies dysuria, Denies hematuria Menstruation: Reports menses 1-7 days Musculoskeletal: Denies myalgias Integumentary: Denies pruritus, Denies rash Neurological: Denies numbness, Denies weakness Psychiatric: Reports anxiety, Reports depression Endocrine: Denies fatigue, Denies weight change Past Medical History Past Medical History: No Reported History Additional Past Medical History / Comment(s): anxiety, ADHD History of Any Multi-Drug Resistant Organisms: None Reported Past Surgical History: Adenoidectomy, Cholecystectomy, Orthopedic Surgery Additional Past Surgical History / Comment(s): Right Arm surgery Past Anesthesia/Blood Transfusion Reactions: No Reported Reaction Additional Past Anesthesia/Blood Transfusion Reaction / Comment(s): no blood tx Past Psychological History: Anxiety, Depression Smoking Status: Never smoker Past Alcohol Use History: None Reported Past Drug Use History: None Reported - Past Family History Father Family Medical History: No Reported History Mother History Unknown: Yes Family Medical History: Hypertension Medications and Allergies Home Medications Medication Instructions Recorded Confirmed Type Sertraline [Zoloft] 50 mg PO HS 01/20/21 06/24/22 History Allergies Allergy/AdvReac Type Severity Reaction Status Date / Time sulfamethoxazole Allergy Unknown Verified 06/24/22 06:35 [From Bactrim] trimethoprim [From Bactrim] Allergy Unknown Verified 06/24/22 06:35 Exam Osteopathic Statement: *. No significant issues noted on an osteopathic structural exam other than those noted in the History and Physical/Consult. HEENT: within normal limits Heart: regular rate and rhythm Lungs: clear to auscultation bilaterally Abdomen: soft, non-tender Pelvic: uterus small anteverted, non-tender, no adnexal masses or tenderness Extremities: neg. Edison's Assessment and Plan (1) Family planning Current Visit: No Status: Acute Code(s): Z30.09 - ENCOUNTER FOR OTH GENERAL CNSL AND ADVICE ON CONTRACEPTION SNOMED Code(s): 107221942 Plan: Proceed with laparoscopic bilateral tubal ligation via fulgaration. I have discussed the risks, benefits, and alternative therapies for the above-mentioned procedure and for both sedation/anesthesia as well as necessary blood products administration, if indicated, as they pertain to this patient. The patient has indicated her understanding and acceptance of the risks and procedures discussed.
[~2022-06-24 05:59] MED LIST: Pre Op ABX Message 1 EACH MISC MISCELLANE ONE
[2022-06-24] MEDS ORDERED: ONDANSETRON 4 MG/2 ML VIAL IVP ONE (06:00)
[2022-06-24] MEDS ORDERED: DEXAMETHASONE SOD PHOSPHATE 4 MG/ML 1 ML VIAL IV ONE (06:00)
[2022-06-24] MEDS ORDERED: LACTATED RINGERS 1,000 ML IV SCH (06:00)
[2022-06-24] MEDS ORDERED: LIDOCAINE 1% (10MG/ML) FOR IV START INTRADERMA PRN (06:00)
[2022-06-24 06:33] VITALS: RESP 16
[2022-06-24] MEDS ORDERED: METOCLOPRAMIDE 5 MG/ML 2 ML VIAL IVP PRN (07:00)
[2022-06-24] MEDS ORDERED: HYDROmorphone 0.5 MG/0.5 ML SYRINGE IVP PRN (07:00)
[2022-06-24] MEDS ORDERED: PROPOFOL 10 MG/ML 20 ML VIAL IV ONE (07:22)
[2022-06-24] MEDS ORDERED: LIDOCAINE 4% LTA KIT (4 ML) TOPICAL ONE (07:22)
[2022-06-24] MEDS ORDERED: LIDOCAINE 2% INJ 20 MG/ML (2 ML VIAL) ONE (07:22)
[2022-06-24] MEDS ORDERED: MIDAZOLAM 2 MG/2 ML VIAL ONE (07:22)
[2022-06-24] MEDS ORDERED: KETOROLAC 15 MG/ML 1 ML VIAL ONE (07:22)
[2022-06-24] MEDS ORDERED: SUCCINYLCHOLINE CHLORIDE 200 MG/10 ML VIAL IV ONE (07:22)
[2022-06-24] MEDS ORDERED: HYDROmorphone (PF) 1 MG/ML ONE (07:22)
[2022-06-24] MEDS ORDERED: ROCURONIUM 10 MG/ML (5 ML VIAL) IV ONE (07:22)
[2022-06-24] MEDS ORDERED: fentaNYL (PF) 50 MCG/ML 2 ML AMP ONE (07:22)
[2022-06-24] MEDS ORDERED: NEOSTIGMINE 1 MG/ML 10 ML VIAL ONE (07:22)
[2022-06-24] MEDS ORDERED: GLYCOPYRROLATE 0.2 MG/ML 2 ML VIAL ONE (07:22)
[2022-06-24] MEDS ORDERED: BUPIVACAINE (PF) 0.25% 30 ML VIAL SQ ONE ×2 (07:47→08:12)
[2022-06-24] MEDS ORDERED: LACTATED RINGERS 1,000 ML IV ONE ×2 (08:03→09:24)
--- NOTE | 2022-06-24 08:15 | P.OP ---
Date of Procedure: 06/24/22 Preoperative Diagnosis: Family planning Postoperative Diagnosis: Same Procedure(s) Performed: Laparoscopic bilateral tubal ligation via fulguration Anesthesia: ADDY Surgeon: Ashwini Holloway Estimated Blood Loss (ml): 10 Pathology: none sent Condition: stable Disposition: same day Indications for Procedure: This is a 31 y.o. female, 2, para 2, who presents for laparoscopic bilateral tubal ligation via fulgaration. She is currently using rhythm method and wishes permanent sterilization. Operative Findings: Uterus is anteverted, sounded to 8 cm. Normal uterus tubes and ovaries are noted. Appendix is visualized and appears normal. Description of Procedure: The patient is taken to the operating room where she is placed in the dorsal lithotomy position. She is prepped and draped in the normal sterile fashion. Examination is performed under anesthesia. Uterus is found to be in a anteverted position. No adnexal masses were palpated. Next a bivalve speculum was placed in the patient's vagina. An Allis clamp was used to grasp the anterior lip of the cervix. The uterus was sounded to 8.5 cm. The kroner uterine manipulator was then inserted through the cervix and the balloon was inflated. The Allis clamp is removed speculum was removed gloves were changed and attention was turned to the abdomen. A small stab incision was made with a scalpel above the umbilicus. A 5 mm disposable bladeless trocar was then inserted into the peritoneal cavity under direct visualization with low flow insufflation. Once inside, pneumoperitoneum was achieved with CO2 gas. The insert was removed and the camera was placed. Intraperitoneal placement was confirmed. No active bleeding was noted. There was noted some gas in the preperitoneal space but intraperitoneal placement was noted. Next the patient was placed in Trendelenburg position. A small stab incision was made suprapubically and a 5 mm disposable bladeless trocar was inserted into the peritoneal cavity under direct visualization. Once inside pelvic contents were inspected. Next a bipolar Kleppinger instrument was placed through the inferior trocar and the midportion of each tube was brought away from other structures and completely fulgurated on approximate 2-3 cm segment of each tube. Excellent hemostasis was noted. Pictures were taken. Pneumoperitoneum was released after the inferior trocar was removed under direct visualization. The upper trocar was then removed. The skin incisions were then closed with 4-0 Vicryl suture in a subcuticular fashion. Incisions were then injected with quarter percent Marcaine. Approximately 7 mL were used. Next the kroner uterine manipulator was removed. Minimal bleeding was noted. All sponge and needle counts are correct. The patient is then taken to recovery room in stable condition.
[2022-06-24 08:56] VITALS: TEMP 97
[2022-06-24 09:57] VITALS: BP 105/64; PULSE 74
== END 2022-06-24 10:20 | disposition home or self-care (01) ==
LOC: OR 05:59
PROVIDERS: ATTEND Obstetrics & Gynecology
DX: Z30.09 Encounter for other general counseling and advice on contraception (principal); F41.9 Anxiety disorder, unspecified; F32.A Depression, unspecified; Z90.89 Acquired absence of other organs; Z98.890 Other specified postprocedural states; Z82.49 Family history of ischemic heart disease and other diseases of the circulatory system; Z88.2 Allergy status to sulfonamides; Z88.1 Allergy status to other antibiotic agents; Z79.899 Other long term (current) drug therapy
CPT/HCPCS: 81025; 58670; J2250; J0330; J1100; J2710; J2405; J3010; J1170; J1885; J2704; J1790; J2001

== ENCOUNTER 2024-08-01 21:55 | Emergency (ER) | payer OTHER ==
--- NOTE | 2024-08-01 22:31 | ED ---
General Adult HPI - General Chief complaint: Skin/Abscess/Foreign Body Stated complaint: Abscess on bottom Time Seen by Provider: 08/01/24 22:00 Source: patient Mode of arrival: ambulatory Limitations: no limitations - History of Present Illness Initial comments: 33-year-old female presenting with chief complaint of abscess to the right buttock. Patient states she has had abscess in this area before. States that throughout the day she was trying to use warm compresses and took some leftover antibiotics in hopes that it would allow her to follow-up with urgent care in the morning, however this evening she was in too much pain so she came to the ER. No fever. No injury. She admits to swelling and tenderness. - Related Data Home Medications Medication Instructions Recorded Confirmed Sertraline [Zoloft] 50 mg PO HS 01/20/21 06/24/22 Previous Rx's Medication Instructions Recorded oxyCODONE HCL [OxyIR] 5 mg PO Q6H PRN 3 Days #12 tab 06/24/22 Doxycycline [Vibramycin] 100 mg PO BID 7 Days #14 capsule 08/01/24 Allergies Allergy/AdvReac Type Severity Reaction Status Date / Time sulfamethoxazole Allergy Unknown Verified 08/01/24 21:59 [From Bactrim] trimethoprim [From Bactrim] Allergy Unknown Verified 08/01/24 21:59 Review of Systems ROS Statement: Those systems with pertinent positive or pertinent negative responses have been documented in the HPI. ROS Other: All systems not noted in ROS Statement are negative. Past Medical History Past Medical History: No Reported History Additional Past Medical History / Comment(s): anxiety, ADHD History of Any Multi-Drug Resistant Organisms: None Reported Past Surgical History: Adenoidectomy, Cholecystectomy, Orthopedic Surgery Additional Past Surgical History / Comment(s): Right Arm surgery Past Anesthesia/Blood Transfusion Reactions: No Reported Reaction Additional Past Anesthesia/Blood Transfusion Reaction / Comment(s): no blood tx Past Psychological History: Anxiety, Depression Smoking Status: Never smoker Past Alcohol Use History: None Reported Past Drug Use History: None Reported - Past Family History Father Family Medical History: No Reported History Mother History Unknown: Yes Family Medical History: Hypertension General Exam Limitations: no limitations General appearance: alert, in no apparent distress Head exam: Present: atraumatic, normocephalic, normal inspection Eye exam: Present: normal appearance, EOMI Neck exam: Present: normal inspection. Absent: meningismus Respiratory exam: Absent: respiratory distress Neurological exam: Present: alert, oriented X3 Psychiatric exam: Present: normal affect, normal mood Expanded Type of lesion: Present: abscess (Right buttock) Course Vital Signs 08/01/24 08/01/24 21:57 22:45 Temperature 97.4 F L 97.8 F Pulse Rate 107 H 79 Respiratory 20 18 Rate Blood Pressure 169/108 145/82 O2 Sat by Pulse 97 99 Oximetry Procedures - Incision & Drainage Consent Obtained: verbal consent Site: buttock Anesthetic Used: lidocaine 1%, without epi Scalpel Used: #11 I&D Drainage Obtained: Pus, Blood Patient Tolerated Procedure: well Medical Decision Making - Medical Decision Making Was pt. sent in by a medical professional or institution ([facility], DUMP ATTENDANT, urgent care, hospital, or snf...) When possible be specific @ -No Did you speak to anyone other than the patient for history (EMS, parent, family, police, friend...)? What history was obtained from this source @ -No Did you review nursing and triage notes (agree or disagree)? Why? @ -I reviewed and agree with nursing and triage notes Were old charts reviewed (outside hosp., previous admission, EMS record, old EKG, old radiological studies, urgent care reports/EKG's, snf records)? Report findings @ -No old charts were reviewed Differential Diagnosis (chest pain, altered mental status, abdominal pain women, abdominal pain men, vaginal bleeding, weakness, fever, dyspnea, syncope, headache, dizziness, GI bleed, back pain, seizure, CVA, palpatations, mental health, musculoskeletal)? @ -Differential includes abscess, cellulitis, allergic reaction, not an all- inclusive list EKG interpreted by me (3pts min.). @ -As above X-rays interpreted by me (1pt min.). @ -None done CT interpreted by me (1pt min.). @ -None done U/S interpreted by me (1pt. min.). @ -None done What testing was considered but not performed or refused? (CT, X-rays, U/S, labs)? Why? @ -None What meds were considered but not given or refused? Why? @ -None Did you discuss the management of the patient with other professionals (professionals i.e. Dr., PA, DUMP ATTENDANT, lab, RT, psych nurse, medical social consultant, addiction counselor, teacher, accounting officer, high risk case manager)? Give summary @ -No Was smoking cessation discussed for >3mins.? @ -No Was critical care preformed (if so, how long)? @ -No Were there social determinants of health that impacted care today? How? (Homelessness, low income, unemployed, alcoholism, drug addiction, transportation, low edu. Level, literacy, decrease access to med. care, assisted, rehab)? @ -No Was there de-escalation of care discussed even if they declined (Discuss DNR or withdrawal of care, Hospice)? DNR status @ -No What co-morbidities impacted this encounter? (DM, HTN, Smoking, COPD, CAD, Cancer, CVA, ARF, Chemo, Hep., AIDS, mental health diagnosis, sleep apnea, morbid obesity)? @ -None Was patient admitted / discharged? Hospital course, mention meds given and route, prescriptions, significant lab abnormalities, going to OR and other pertinent info. @ -33-year-old female presenting with chief complaint of abscess to the right buttock. She has had an abscess in this area before. Incision and drainage is performed. Patient is started on doxycycline due to a Bactrim allergy. She is educated on wound care, encouraged warm compresses and gentle pressure on the area to help express any remaining pus. Educated on return parameters. Provided with general surgeon referral for removal of the capsule. Follow-up with PCP. Report back to ER with any new or worsening symptoms. Discussed return parameters and answered all questions. Patient conveyed verbal understanding and agreed to the plan. I discussed this case in detail with my attending Dr. Herrera Undiagnosed new problem with uncertain prognosis? @ -No Drug Therapy requiring intensive monitoring for toxicity (Heparin, Nitro, Insulin, Cardizem)? @ -No Were any procedures done? @ -Incision and drainage Diagnosis/symptom? @ -Abscess Acute, or Chronic, or Acute on Chronic? @ -Acute Uncomplicated (without systemic symptoms) or Complicated (systemic symptoms)? @ -Uncomplicated Side effects of treatment? @ -No Exacerbation, Progression, or Severe Exacerbation? @ -No Poses a threat to life or bodily function? How? (Chest pain, [place], VT, pneumonia, PE, COPD, DKA, ARF, appy, cholecystitis, CVA, Diverticulitis, Homicidal, Suicidal, threat to staff... and all critical care pts) @ -Seemingly low likelihood at this time Disposition Clinical Impression: Abscess Disposition: HOME SELF-CARE Condition: Good Instructions (If sedation given, give patient instructions): Abscess Incision and Drainage (ED), Abscess (ED) Additional Instructions: Follow-up with PCP. Report back to ER with any new or worsening symptoms, including but not limited to increased redness or swelling, fever, drainage after 1 to 2 days. Use warm compresses daily to help express any remaining pus. Change the dressing daily, this may need to be more often in the next 1 to 2 days while you are having some continued drainage from the area. Take medication as prescribed. I provided you with a referral to a surgeon for possible removal of the capsule Prescriptions: Doxycycline [Vibramycin] 100 mg PO BID 7 Days #14 capsule Is patient prescribed a controlled substance at d/c from ED?: No Referrals: Geo Granados MD [Primary Care Provider] - 1-2 days Hari Mena MD [Medical Doctor] - 1-2 days Time of Disposition: 22:30
[2024-08-01] MEDS: DOXYCYCLINE 100 MG TABLET PO ONE (22:40)
[2024-08-01 22:46] VITALS: BP 145/82; PULSE 79; RESP 18; TEMP 97.8
== END 2024-08-01 23:44 | disposition home or self-care (01) ==
LOC: EC 21:55
DX: L02.31 Cutaneous abscess of buttock (principal); Z88.2 Allergy status to sulfonamides
CPT/HCPCS: 10060; 99283